=== PATIENT | female | born 2000 | race Two or more races ===

== ENCOUNTER → 2019-05-19 12:27 | Outpatient (CLI) | payer OTHER | END | disposition home or self-care (01) | LOC: LAB 12:27 | DX: J11.1 Influenza due to unidentified influenza virus with other respiratory manifestations (principal); J06.9 Acute upper respiratory infection, unspecified ==

== ENCOUNTER → 2020-02-13 15:00 | Outpatient (CLI) | payer OTHER | END | disposition home or self-care (01) | LOC: PPH VACUNA 15:00 | DX: Z23 Encounter for immunization (principal) ==

== ENCOUNTER 2021-01-20 10:24 | Outpatient (CLI) | payer OTHER | END 2021-01-20 13:21 | disposition home or self-care (01) | LOC: OBS/DEL 10:24 | PROVIDERS: ATTEND Specialist | DX: O26.892 Other specified pregnancy related conditions, second trimester (principal); N89.8 Other specified noninflammatory disorders of vagina; Z3A.25 25 weeks gestation of pregnancy ==

== ENCOUNTER 2021-04-24 14:45 | Inpatient (IN) | payer OTHER ==
[~2021-04-24] VITALS: Ht 149.9 cm; Wt 95.3 kg
[2021-04-27] MEDS ORDERED: PRENATAL CAPLE1 EAC1 PO (22:09)
== END 2021-04-30 10:18 | disposition home or self-care (01) | DRG 807 ==
LOC: LDR 04-27 20:54 → OB/GYN 04-27 20:54 → SURG-SUITE 04-28 14:23 → SURH 04-29 14:45 → SURG-SUITE 04-30 10:18
PROVIDERS: ADMIT Specialist; ATTEND Specialist
PROC: 10E0XZZ Delivery of Products of Conception, External Approach (ICD-10-PCS; principal; 2021-04-27)
PROC: 0KQM0ZZ Repair Perineum Muscle, Open Approach (ICD-10-PCS; 2021-04-27)
PROC: 10907ZC Drainage of Amniotic Fluid, Therapeutic from Products of Conception, Via Natural or Artificial Opening (ICD-10-PCS; 2021-04-27)
PROC: 3E0P7VZ Introduction of Hormone into Female Reproductive, Via Natural or Artificial Opening (ICD-10-PCS; 2021-04-27)
PROC: 4A1HXFZ Monitoring of Products of Conception, Cardiac Rhythm, External Approach (ICD-10-PCS; 2021-04-27)
DX: O70.1 Second degree perineal laceration during delivery (principal); Z37.0 Single live birth; O62.2 Other uterine inertia; O90.81 Anemia of the puerperium; D64.9 Anemia, unspecified; Z3A.39 39 weeks gestation of pregnancy

== ENCOUNTER 2021-04-27 11:06 | Outpatient (CLI) | payer OTHER ==
[2021-04-27] MEDS ORDERED: PRENATAL CAPLE1 EAC1 PO (22:09)
== END 2021-04-27 11:36 | disposition home or self-care (01) ==
LOC: NST 11:06
PROVIDERS: ATTEND Specialist
DX: Z34.83 Encounter for supervision of other normal pregnancy, third trimester (principal)